=== PATIENT | male | born 1960 | race Caucasian/White ===

== ENCOUNTER 2018-07-17 21:12 | Emergency (ER) | payer OTHER ==
[~2018-07-17] VITALS: Ht 165.1 cm; Wt 70.0 kg
[2018-07-17 21:24] VITALS: Ht 165.1 cm; Wt 70.0 kg
[2018-07-18 00:54] VITALS: BP 135/85
== END 2018-07-18 00:54 | disposition home or self-care (01) ==
LOC: ED 21:12
DX: S01.112A Laceration without foreign body of left eyelid and periocular area, initial encounter (principal); W01.0XXA Fall on same level from slipping, tripping and stumbling without subsequent striking against object, initial encounter; Y93.89 Activity, other specified; Y92.89 Other specified places as the place of occurrence of the external cause; Y99.8 Other external cause status
CPT/HCPCS: 90714; J2001

== ENCOUNTER 2018-07-19 16:05 | Emergency (ER) | payer OTHER ==
[~2018-07-19] VITALS: Ht 165.1 cm; Wt 70.3 kg
[2018-07-19 16:08] VITALS: Ht 165.1 cm; Wt 70.3 kg
[2018-07-19 16:29] VITALS: BP 159/89
== END 2018-07-19 16:29 | disposition home or self-care (01) ==
LOC: ED 16:05
DX: S01.112D Laceration without foreign body of left eyelid and periocular area, subsequent encounter (principal); X58.XXXD Exposure to other specified factors, subsequent encounter

== ENCOUNTER 2018-07-23 16:10 | Emergency (ER) | payer OTHER ==
[~2018-07-23] VITALS: Ht 170.2 cm; Wt 69.9 kg
[2018-07-23 16:18] VITALS: BP 168/85; Ht 170.2 cm; Wt 69.9 kg
== END 2018-07-23 16:46 | disposition home or self-care (01) ==
LOC: ED 16:10
DX: S01.112D Laceration without foreign body of left eyelid and periocular area, subsequent encounter (principal); X58.XXXD Exposure to other specified factors, subsequent encounter